=== PATIENT | male | born 1975 | race Caucasian/White ===

== ENCOUNTER → 2022-09-20 14:01 | Outpatient (REF) | payer OTHER, SELFPAY ==
--- NOTE | 2022-09-20 14:15 | ECG_ITS ---
Test Reason : QTC CHECK Blood Pressure : / mmHG Vent. Rate : 051 BPM Atrial Rate : 051 BPM P-R Int : 176 ms QRS Dur : 098 ms QT Int : 452 ms P-R-T Axes : 075 074 068 degrees QTc Int : 416 ms Sinus bradycardia Otherwise normal ECG When compared with ECG of 14-JUN-2019 21:24, No significant change was found Referred By: Laurent Zelaya Electronically Signed By:NASRIN TAPIA
[2022-09-20 14:51] LABS: MANUAL DIFF FLAG NO
[2022-09-20 15:17] LABS: Basophils Percent Auto 0.5 % (0-2); Eosinophils Absolute Auto 0.1 X10*3/uL (0.0-0.4); Eosinophils Percent Auto 1.5 % (0-4); Hematocrit 43.6 % (42.0-52.0); Hemoglobin 13.7 g/dl (14.0-18.0); Imm Gran Abs Auto 0.04 X10*3/uL (0.00-0.03); Imm Gran Pct Auto 0.5 % (0.0-0.4); Lymphocytes Absolute Auto 2.5 X10*3/uL (1.2-4.9); Lymphocytes Percent Auto 32.1 % (20-40); Mean Corpuscular HGB Conc 31.4 g/dl (31.0-36.0); Mean Corpuscular Hemoglobin 25.4 pg (27.0-33.0); Mean Corpuscular Volume 80.9 fL (80.0-98.0); Mean Platelet Volume 9.1 fL (9.4-12.4); Monocytes Absolute Auto 0.8 X10*3/uL (0.1-1.2); Monocytes Percent Auto 9.7 % (2-11); Neutrophils Absolute Auto 4.3 x10*3/uL (2.0-8.3); Neutrophils Percent Auto 55.7 % (45-73); Platelet Count 262 X10*3/uL (160-400); Red Blood Count 5.39 X10*6/uL (4.60-5.80); Red Cell Distribution Width 15.1 % (11.0-16.0); White Blood Count 7.8 X10*3/uL (4.8-10.8)
[2022-09-20 15:34] LABS: Estimated Average Glucose 100 mg/dL; Hemoglobin A1c % 5.1 %
[2022-09-20 16:21] LABS: Alanine Aminotransferase 20 U/L (0-40); Alkaline Phosphatase 70 U/L (39-117); Anion Gap 17 (12-20); Aspartate Amino Transferase 42 U/L (5-37); Bilirubin Total 0.6 mg/dL (0.0-1.0); Blood Urea Nitrogen 13 mg/dL (9-16); C Reactive Protein 1.99 mg/dL (< or = 0.50); Calcium 9.7 mg/dL (8.4-10.2); Carbon Dioxide 29 mmol/L (22-29); Chloride 103 mmol/L (96-108); Cholesterol 180 mg/dL; Estimated Glomerular Filt Rate > 60; Glucose Random 79 mg/dL (60-115); HDL Cholesterol 46 mg/dL; LDL Cholesterol Calculated 112 mg/dl; Potassium 5.6 mmol/L (3.3-5.1); Sodium 143 mmol/L (135-145); Total Protein 7.6 g/dL (6.5-8.0); Triglycerides 113 mg/dL
[2022-09-20 16:51] LABS: Thyroid Stimulating Hormone 0.64 uIU/mL (0.32-4.0)
[2022-09-21 05:39] LABS: Syphilis Screen Nonreactive (Nonreactive)
[2022-09-21 23:19] LABS: Prolactin 5.2 ng/mL (2.0-18.0)
== END ==
LOC: HO.CARD 14:01
PROVIDERS: Visit Provider Psychiatry & Neurology Child & Adolescent Psychiatry
DX: Z13.89 Encounter for screening for other disorder (principal); F10.21 Alcohol dependence, in remission; F11.20 Opioid dependence, uncomplicated; F14.20 Cocaine dependence, uncomplicated
CPT/HCPCS: 36415; 80053; 80061; 83036; 84146; 84443; 85025; 86140; 86780; 93005

== ENCOUNTER → 2025-01-20 12:01 | Day surgery (SDC) | payer OTHER, SELFPAY ==
[2025-01-18 09:54] VITALS: BMI 21.6
--- OUTSIDE RECORDS SUMMARY | 2025-01-18 09:55 | XMS_ITS ---
Author Organization [facility] Address [address] [place] [id number] Care Team Providers Care Distribution Operation Supervisor Name Role Phone KENNY FERNANDEZ Primary Care Provider Jarrett Lu Jr Encounters Encounter Location Date Provider Diagnosis [facility] [address] [place] [id number] 01/18/2025 Jarrett Rosado Jr Plan Of Treatment No Information Progress Notes * TERRI TOMLIN JRDOB:1975 (49 yo M)Acc No.[id number]:01/18/2025 Progress Notes Patient: TERRI LOPEZ JR Provider: Ramón Rosado MD :1975 A ge:49 Y S ex:Male Date:01/18/2025 Address:[address] [place], [place] [id number] Pcp:KENNY FERNANDEZ Subjective: * Chief Complaints: * * Medical History: Objective: * Vitals: Assessment: Plan: * Treatment: * * The named appointment provid er may or may not be the originator of this progress note, and it is not deemed complete until electronically signed by the appointment provider. Sign off status: Pending * Provider: Ramón Rosado MD Date: 01/18/2025 Generated for Monica sanchez/Kellen/Lettyitting on: 01/20/2025 01:08 PM EDT
[2025-01-20 12:26] VITALS: BMI 22.0
[2025-01-20 12:36] VITALS: PULSE 62; RESP 20; TEMP 30.6; O2SAT 98
[2025-01-20 12:43] LABS: Cannabinoid Screen Urine POSITIVE (Not Detect)
--- NOTE | 2025-01-20 12:52 | PC.NURSE ---
Anesthesia contacted re: patient presentation. Drinking fluids upon arrival, speech slurred. Sleeps when undisturbed Urine tox screen positive ( see report). Dr Rosado will be notified.
--- OUTSIDE RECORDS SUMMARY | 2025-01-20 13:06 | XMS_ITS | Continuity of Care Document ---
Author Name [facility] Organization [facility] Care Team Providers Care Casing In Line Setter Name Role Phone [facility] Unavailable Unavailable Problems Combined list of problems from Department of Defense and Veterans Affairs facilities. It does not include entries that were removed or entered in error. Problem Status Onset Date Problem Type Date of Resolution Comments Source Chronic Post-Traumatic Stress Disorder (SCT 261656228) Active Condition Mar 08, 2022 Entered By: AYLEEN BEASLEY Comment: la [facility] Cocaine user Active Condition [facility] Depression (SCT 85342639) Active Condition Mar 08, 2022 Entered By: AYLEEN BEASLEY Comment: moderate [facility] Gonorrhea Active Condition Jan 13 Entered By: NOHEMI LLOYD Comment: - treeated [facility] H/O: surgery Active Condition Oct 11, 2019 Entered By: NOHEMI LLOYD Comment: 06/2019 s/p repair of left tib/fib fracture [facility] Hepatitis C Active Condition Sep 10, 2022 Entered By: NOHEMI LLOYD Comment: [facility] 2022 Entered By: NOHEMI LLOYD Comment: started Mavyret on 06/28/22 [facility] Hepatitis C Active Condition Sep 28, 2021 Entered By: NOHEMI LLOYD Comment: for levels and U/S [facility] Housing adequate ([place] 497955699) Active Condition [facility] Hyperlipidemia (SCT 16125050) Active Condition [facility] INSOMNIA Active Condition [facility] Low Back Pain Active Condition [place] NICOTINE DEPENDENCY Active Condition [facility] Nondependent Cannabis Abuse ([facility] [id number]) Active Condition [facility] Opioid abuse Active Condition May 11, 2022 Entered By: AYLEEN BEASLEY Comment: On methadone 20 mg/day [facility] Picking own skin Active Condition [place] Polysubstance dependence Active Condition [facility] speech impediment Active Condition [facility] Diagnosis: ICD-10-CM K08.109 Complete loss of teeth, unspecified cause, unspecified class Active Diagnosis [facility] Diagnosis: ICD-10-CM F43.12 Post-traumatic stress disorder, chronic Active Diagnosis [place] Diagnosis: ICD-10-CM R63.4 Abnormal weight loss Active Diagnosis [place] Diagnosis: ICD-10-CM D64.9 Anemia, unspecified Active Diagnosis [facility] Diagnosis: ICD-10-CM F19.99 Oth psychoactive substance use, unsp w unsp disorder Active Diagnosis [facility] Diagnosis: ICD-10-CM K13.0 Diseases of lips Active Diagnosis [facility] Medications Combined list of outpatient medications from Department of Defense and [facility] Affairs facilities.Medications provided include 1) outpatient medications from the last 15 months, and 2) patient-reported medications. Medication Details Route Status Patient Instructions Prescription Expires Prescription Number Last Dispense Date Ordering Provider Order Date Order Qty Source DOXYCYCLINE HYCLATE 100MG TAB TAKE ONE TABLET BY MOUTH TWICE DAILY FOR SKIN INFECTIO N ORAL 10/24/2024 [id number] Muriel SAWYER 2024 20 [place] ENSURE PLUS LIQUID CHOCOLATE DRINK 1 CAN BY MOUTH ONCE DAILY FOR NUTRITIO NAL SUPPLEME NTATION ORAL ACTIVE 07/06/2025 [id number] ANTONINA LLOYD 2023 24 [facility] FERROUS GLUCONATE 324MG TAB TAKE ONE TABLET BY MOUTH EVERY OTHER DAY TO SUPPLEME NT IRON ORAL ACTIVE 10/29/2025 [id number] Beckie CASTREJON 2024 45 [facility] IBUPROFEN 600MG TAB TAKE ONE TABLET BY MOUTH THREE TIMES DAILY NEEDED FOR PAIN TAKE WITH FOOD ORAL 10/24/2024 [id number] Muriel SAWYER 2024 30 [facility] IELD METHADONE TAB TAKE BY MOUTH ORAL ACTIVE MARILYNN SEARS 2021 [place] PREDNISONE 50MG TAB TAKE ONE TABLET BY MOUTH ONCE DAILY ACUTE SWELLING ORAL 10/24/2024 [id number] Muriel SAWYER 2024 3 [facility] IELD Immunizations Combined list of available immunizations from the Department of Defense and Veterans Affairs facilities. Immunization Series Date Given Administered By Site Reaction Lot Number CVX Code Drug Liquor Bridge Operator Status Comments Source HEP B, ADULT 2 2021 DENITAAND LEONEL LEFT DELTO ID [id number] 43 complet ed [facility] [place] [facility] [place], [facility] HEP B, ADULT 1 2021 43 complet ed [facility] IELD TDAP 2021 115 complet ed [facility] IELD COVID-19 (IRMA), VECTOR-NR, [id number], PF, 0.5 ML 1 2020 212 complet ed [facility] [place] [facility] COVID-19 (MODERNA), MRNA, LNP-S, PF, 100 MCG/0.5ML DOSE OR 50 MCG/0.25ML DOSE 3 2020 207 complet ed [facility] DTAP, UNSPECIFIED FORMULATION 2010 107 complet ed Site: Left Deltoid [facility] PNEUMOCOCCAL, UNSPECIFIED FORMULATION 2010 109 complet ed [facility] Results Combined list of recent chemistry, hematology and other laboratory results from Department of Defense and Veterans Affairs, ranging from 15 months to all on record, depending upon the facility. Order Name Results Value Reference Range Date Interpretation Specimen Comments Source FERRITIN FERRITIN [MASS/VOLUM E] IN SERUM OR PLASMA BY IMMUNOASSAY 63.2 ng/mL 21.8 - 274.7 11/30 Specimen Type: SERUM No comment entered. Ordering Provider: KHURRAM CASTREJON Report Released Date/Time: Oct 28, 2024 01:31 PM Reporting Lab: [facility] [facility] [address] [facility] [address] Performing Lab: [facility] [address] [facility] [address] [facility] [facility] IRON & TIBC PANEL IRON BINDING CAPACITY [MASS/VOLUM E] IN SERUM OR PLASMA 426 ug/dL 204 - 475 11/30 Specimen Type: SERUM No comment entered. Ordering Provider: KHURRAM CASTREJON Report Released Date/Time: Oct 28, 2024 01:31 PM Reporting Lab: [facility] [place] [facility] [address] [facility] [address] Performing Lab: [facility] [place] [facility] [address] [facility] [address] [facility] [place] [facility] IRON & TIBC PANEL IRON [MASS/VOLUM E] IN SERUM OR PLASMA 38 ug/dL 65 - 175 11/30 L Specimen Type: SERUM No comment entered. Ordering Provider: KHURRAM CASTREJON Report Released Date/Time: Oct 28, 2024 01:31 PM Reporting Lab: [facility] [place] [facility] [address] [facility] [address] Performing Lab: [facility] [place] [facility] [address] [facility] [address] [facility] [place] [facility] IRON & TIBC PANEL IRON/IRON BINDING CAPACITY.TO JOHNNY [MASS RATIO] IN SERUM OR PLASMA 8.9 15 - 45 11/30 L Specimen Type: SERUM No comment entered. Ordering Provider: KHURRAM CASTREJON Report Released Date/Time: Oct 28, 2024 01:31 PM Reporting Lab: [facility] [place] [facility] [address] [facility] [address] Performing Lab: [facility] [place] [facility] [address] [facility] [address] [facility] [place] [facility] IRON & TIBC PANEL TRANSFERRIN [MASS/VOLUM E] IN SERUM OR PLASMA 323 mg/dL 174 - 364 11/30 Specimen Type: SERUM No comment entered. Ordering Provider: KHURRAM CASTREJON Report Released Date/Time: Oct 28, 2024 01:31 PM Reporting Lab: [facility] [place] [facility] [address] [facility] [address] Performing Lab: [facility] [place] [facility] [address] [facility] [address] [facility] LIVER FUNCTION PROTEIN [MASS/VOLUM E] IN SERUM OR PLASMA 7.9 g/dL 6.4 - 8.3 11/30 Specimen Type: SERUM No comment entered. Ordering Provider: KHURRAM CASTREJON Report Released Date/Time: Oct 28, 2024 01:31 PM Reporting Lab: [facility] [place] [facility] [address] [facility] [address] Performing Lab: [facility] [place] [facility] [address] [facility] [address] [facility] [place] [facility] LIVER FUNCTION ALBUMIN [MASS/VOLUM E] IN SERUM OR PLASMA BY BROMOCRESOL PURPLE (BCP) DYE BINDING METHOD 4.0 g/dL 3.5 - 5.2 11/30 Specimen Type: SERUM No comment entered. Ordering Provider: KHURRAM CASTREJON Report Released Date/Time: Oct 28, 2024 01:31 PM Reporting Lab: [facility] [place] [facility] [address] [facility] [address] Performing Lab: [facility] [place] [facility] [address] [facility] [address] [facility] [facility] LIVER FUNCTION ALKALINE PHOSPHATASE [ENZYMATIC ACTIVITY/VO LUME] IN SERUM OR PLASMA 75 U/L 40 - 150 11/30 Specimen Type: SERUM No comment entered. Ordering Provider: KHURRAM CASTREJON Report Released Date/Time: Oct 28, 2024 01:31 PM Reporting Lab: [facility] [place] [facility] [address] [facility] [address] Performing Lab: [facility] [place] [facility] [address] [facility] [address] [facility] [place] [facility] LIVER FUNCTION ASPARTATE AMINOTRANSF ERASE [ENZYMATIC ACTIVITY/VO LUME] IN SERUM OR PLASMA BY WITH P-5'-P 44 U/L 5 - 34 11/30 H Specimen Type: SERUM No comment entered. Ordering Provider: KHURRAM CASTREJON Report Released Date/Time: Oct 28, 2024 01:31 PM Reporting Lab: [facility] [place] [facility] [address] [facility] [address] Performing Lab: [facility] [place] [facility] [address] [facility] [address] [facility] [place] [facility] LIVER FUNCTION ALANINE AMINOTRANSF ERASE [ENZYMATIC ACTIVITY/VO LUME] IN SERUM OR PLASMA BY WITH P-5'-P 27 U/L 0 - 55 11/30 Specimen Type: SERUM No comment entered. Ordering Provider: KHURRAM CASTREJON Report Released Date/Time: Oct 28, 2024 01:31 PM Reporting Lab: [facility] [place] [address] [address] Performing Lab: [facility] [place] [facility] [address] [facility] [address] [facility] [place] [facility] LIVER FUNCTION BILIRUBIN.T OTAL [MASS/VOLUM E] IN SERUM OR PLASMA 0.6 mg/dL 0.2 - 1.2 11/30 Specimen Type: SERUM No comment entered. Ordering Provider: KHURRAM CASTREJON Report Released Date/Time: Oct 28, 2024 01:31 PM Reporting Lab: [facility] [place] [address] [address] Performing Lab[facility] [place] [facility] [address] [facility] [address] [facility] [place] [facility] MAGNESIUM MAGNESIUM [MASS/VOLUM E] IN SERUM OR PLASMA 2.4 mg/dL 1.6 - 2.6 11/30 Specimen Type: SERUM No comment entered. Ordering Provider: KHURRAM CASTREJON Report Released Date/Time: Oct 28, 2024 01:31 PM Reporting Lab: [facility] [place] [address] [address] Performing Lab: [facility] [place] [address] [address] [facility] [place] [facility] BASIC METABOLIC PANEL (fasting) UREA NITROGEN [MASS/VOLUM E] IN SERUM OR PLASMA 11 mg/dL 9 - 21 11/30 Specimen Type: SERUM No comment entered. Ordering Provider: KHURRAM CASTREJON Report Released Date/Time: Oct 28, 2024 01:31 PM Reporting Lab: [facility] [place] [address] Performing Lab: [place] [facility] [place] [address] [facility] [place] [facility] BASIC METABOLIC PANEL (fasting) GLUCOSE [MASS/VOLUM E] IN SERUM OR PLASMA 102 mg/dL 65 - 100 11/30 H Specimen Type: SERUM No comment entered. Ordering Provider: KHURRAM CASTREJON Report Released Date/Time: Oct 28, 2024 01:31 PM Reporting Lab: [facility] [place] [address] Performing Lab: [facility] [address] [facility] BASIC METABOLIC PANEL (fasting) SODIUM [MOLES/VOLU ME] IN SERUM OR PLASMA 141 mmol/L 136 - 145 11/30 Specimen Type: SERUM No comment entered. Ordering Provider: KHURRAM CASTREJON Report Released Date/Time: Oct 28, 2024 01:31 PM Reporting Lab: [facility] [place] [address] [address] Performing Lab: [facility] [place] [address] [address] [facility] BASIC METABOLIC PANEL (fasting) POTASSIUM [MOLES/VOLU ME] IN SERUM OR PLASMA 4.7 mmol/L 3.5 - 5.1 11/30 Specimen Type: SERUM No comment entered. Ordering Provider: KHURRAM CASTREJON Report Released Date/Time: Oct 28, 2024 01:31 PM Reporting Lab: [facility] [place] [address] Performing Lab: [facility] [place] [facility] [address] [facility] [address] [facility] BASIC METABOLIC PANEL (fasting) CHLORIDE [MOLES/VOLU ME] IN SERUM OR PLASMA 103 mmol/L 98 - 107 11/30 Specimen Type: SERUM No comment entered. Ordering Provider: KHURRAM CASTREJON Report Released Date/Time: Oct 28, 2024 01:31 PM Reporting Lab: [facility] [place] [facility] [address] [facility] [address] Performing Lab: [place] [facility] [address] [facility] [address] [facility]ERRH[facility]N [facility] BASIC METABOLIC PANEL (fasting) CARBON DIOXIDE, TOTAL [MOLES/VOLU ME] IN SERUM OR PLASMA 27 meq/L 22 - 29 11/30 Specimen Type: SERUM No comment entered. Ordering Provider: KHURRAM CASTREJON Report Released Date/Time: Oct 28, 2024 01:31 PM Reporting Lab: [facility] [place] [place] [facility] [address] [facility] [address] Performing Lab: [facility] [address] [facility] [address] [facility] TRN [facility] BASIC METABOLIC PANEL (fasting) CALCIUM [MASS/VOLUM E] IN SERUM OR PLASMA 9.0 mg/dL 8.4 - 10.2 11/30 Specimen Type: SERUM No comment entered. Ordering Provider: KHURRAM CASTREJON Report Released Date/Time: Oct 28, 2024 01:31 PM Reporting Lab: [facility] [place] [place] [facility] [address] [facility] [address] Performing Lab: [facility] [address] [facility] [address] [facility] CENTERRSEARCY HOSPITALTRN [facility]ITALUSE [facility] BASIC METABOLIC PANEL (fasting) CREATININE [MASS/VOLUM E] IN SERUM OR PLASMA 0.73 mg/dL 0.72 - 1.25 11/30 Specimen Type: SERUM No comment entered. Ordering Provider: KHURRAM CASTREJON Report Released Date/Time: Oct 28, 2024 01:31 PM Reporting Lab: [facility] [place] [facility] [address] [facility] [address] Performing Lab: [facility] [place] [facility] [address] [facility] [address] [facility] [place] [facility] BASIC METABOLIC PANEL (fasting) GLOMERULAR FILTRATION RATE/1.73 SQ M.PREDICTED [VOLUME RATE/AREA] IN SERUM, PLASMA OR BLOOD BY CREATININE- BASED FORMULA (CKD-EPI 2020) >90mL/ min 60 11/30 Specimen Type: SERUM No comment entered. Ordering Provider: KHURRAM CASTREJON Report Released Date/Time: Oct 28, 2024 01:31 PM Reporting Lab: [facility] [place] [address] [address] Performing Lab: [facility] [place] [place] [address] [address] [facility] [place] [facility] CBC AND DIFF (AUTO) LEUKOCYTES [#/VOLUME] IN BLOOD BY AUTOMATED COUNT 6.97 10*3/u L 4.50 - 11.00 11/30 Specimen Type: BLOOD Comment: sdif Smear reviewed, auto CBC w/Diff accepted. Ordering Provider: KHURRAM CASTREJON Report Released Date/Time: Oct 28, 2024 01:31 PM Reporting Lab: [facility] [place] [address] [address] Performing Lab: [facility] [place] [address] [address] [facility] [place] [facility] CBC AND DIFF (AUTO) ERYTHROCYTE S [#/VOLUME] IN BLOOD BY AUTOMATED COUNT 5.51 10*6/u L 4.23 - 5.66 11/30 Specimen Type: BLOOD Comment: sdif Smear reviewed, auto CBC w/Diff accepted. Ordering Provider: KHURRAM CASTREJON Report Released Date/Time: Oct 28, 2024 01:31 PM Reporting Lab: [facility] [place] [facility] [address] [facility] [address] Performing Lab: [facility] [place] [address] [address] [facility] [place] [facility] CBC AND DIFF (AUTO) HEMOGLOBIN [MASS/VOLUM E] IN BLOOD 13.5 g/dL 12.8 - 17 11/30 Specimen Type: BLOOD Comment: sdif Smear reviewed, auto CBC w/Diff accepted. Ordering Provider: KHURRAM CASTREJON Report Released Date/Time: Oct 28, 2024 01:31 PM Reporting Lab: [facility]ERRSE[facility]Y HOSPITALTRN [facility]ETS [facility] [address] [facility] [address] Performing Lab: [facility] W[facility]N [facility]ITALCH[facility]ETS [facility] [address] [facility] [address] [facility]ENTERRSEARCY HOSPITALTRN [place] [facility] CBC AND DIFF (AUTO) HEMATOCRIT [VOLUME FRACTION] OF BLOOD BY AUTOMATED COUNT 43.4 39.2 - 50.4 11/30 Specimen Type: BLOOD Comment: sdif Smear reviewed, auto CBC w/Diff accepted. Ordering Provider: KHURRAM CASTREJON Report Released Date/Time: Oct 28, 2024 01:31 PM Reporting Lab: [facility]ENTERRSEARCY HOSPITALTRN [facility]USE[address] [address] Performing Lab: [facility]RL TRN [facility]PITALCHUSETS [facility] [address] [facility] [address] [facility]ERR[facility]N [facility]ITALUSE [facility] CBC AND DIFF (AUTO) MCV [ENTITIC VOLUME] BY AUTOMATED COUNT 78.8 fL 82 - 99 11/30 L Specimen Type: BLOOD Comment: sdif Smear reviewed, auto CBC w/Diff accepted. Ordering Provider: KHURRAM CASTREJON Report Released Date/Time: Oct 28, 2024 01:31 PM Reporting Lab: [facility]ENTERRSEARCY HOSPITALTRN [facility]ITALUSETS [address] [address] Performing Lab: [facility]RL TRN [facility]ITALCHUSETS [address] [address] [facility]ERRHUNTSVILLE [facility] SYSTEMN [facility] CBC AND DIFF (AUTO) MCHC [MASS/VOLUM E] BY AUTOMATED COUNT 31.1 g/dL 30.8 - 35.1 11/30 Specimen Type: BLOOD Comment: sdif Smear reviewed, auto CBC w/Diff accepted. Ordering Provider: KHURRAM CASTREJON Report Released Date/Time: Oct 28, 2024 01:31 PM Reporting Lab: [facility]ENTERRSEARCY HOSPITALTRN [facility]ITALUSETS [address] [address] Performing Lab: [facility] W[facility]N [facility]PITALCHUSETS [facility] [address] [facility] [address] [facility] W[facility]OSPITALCHUSE [facility] CBC AND DIFF (AUTO) PLATELETS [#/VOLUME] IN BLOOD BY AUTOMATED COUNT 261 10*3/u L 140 - 360 11/30 Specimen Type: BLOOD Comment: sdif Smear reviewed, auto CBC w/Diff accepted. Ordering Provider: KHURRAM CASTREJON Report Released Date/Time: Oct 28, 2024 01:31 PM Reporting Lab: [facility] TRN [facility]ITALUSETS [facility] [address] [facility] [address] Performing Lab: [facility]ENTERRSEARCY HOSPITALTRN [facility] [address] [facility]RL TRN [facility]ITALUSE [facility] CBC AND DIFF (AUTO) PLATELET MEAN VOLUME [ENTITIC VOLUME] IN BLOOD BY AUTOMATED COUNT 8.7 fL 9.2 - 12.4 11/30 L Specimen Type: BLOOD Comment: sdif Smear reviewed, auto CBC w/Diff accepted. Ordering Provider: KHURRAM CASTREJON Report Released Date/Time: Oct 28, 2024 01:31 PM Reporting Lab: [facility]ENTERRSEARC[facility] HOSPITALTRN [facility] [address] Performing Lab: [facility] TRN [facility]PITALUSETS [facility] [address] [facility] [address] [facility]ERRHUNTSV[facility] SYSTEMN [facility]ITALUSE [facility] CBC AND DIFF (AUTO) ERYTHROCYTE DISTRIBUTIO N WIDTH [RATIO] BY AUTOMATED COUNT 15.7 12.0 - 16.0 11/30 Specimen Type: BLOOD Comment: sdif Smear reviewed, auto CBC w/Diff accepted. Ordering Provider: KHURRAM CASTREJON Report Released Date/Time: Oct 28, 2024 01:31 PM Reporting Lab: [facility] TRN [facility]ITALUSETS [address] [address] Performing Lab: [facility] W[facility]N [facility]ITAL[facility]ETS [address] [address] [facility]ERRHUNTSVILLE [facility]OSP[facility] SYSTEMN [facility]ITALUSE [facility] CBC AND DIFF (AUTO) MONOCYTES [#/VOLUME] IN BLOOD BY AUTOMATED COUNT 0.72 10*3/u L 0.30 - 1.10 05/19 /2025 Specimen Type: BLOOD Comment: sdif Smear reviewed, auto CBC w/Diff accepted. Ordering Provider: KHURRAM CASTREJON Report Released Date/Time: Oct 28, 2024 01:31 PM Reporting Lab: [facility] [place] [facility] [address] [facility] [address] Performing Lab: [facility] [place] [facility] [address] [facility] [phone] [facility] [place] [facility] CBC AND DIFF (AUTO) MCH [ENTITIC MASS] BY AUTOMATED COUNT 24.5 pg 26.2 - 32.6 11/30 L Specimen Type: BLOOD Comment: sdif Smear reviewed, auto CBC w/Diff accepted. Ordering Provider: KHURRAM CASTREJON Report Released Date/Time: Oct 28, 2024 01:31 PM Reporting Lab: [facility] [place] [address] [address] Performing Lab: [facility] [place] [address] [address] [facility] [place] [facility] CBC AND DIFF (AUTO) NEUTROPHILS /100 LEUKOCYTES IN BLOOD BY AUTOMATED COUNT 47.8 43.7 - 75.8 11/30 Specimen Type: BLOOD Comment: sdif Smear reviewed, auto CBC w/Diff accepted. Ordering Provider: KHURRAM CASTREJON Report Released Date/Time: Oct 28, 2024 01:31 PM Reporting Lab: [facility] [place] [address] [address] Performing Lab: [facility] [place] [address] [address] [facility] [place] [facility] CBC AND DIFF (AUTO) LYMPHOCYTES /100 LEUKOCYTES IN BLOOD BY AUTOMATED COUNT 37.4 14.0 - 42.3 11/30 Specimen Type: BLOOD Comment: sdif Smear reviewed, auto CBC w/Diff accepted. Ordering Provider: KHURRAM CASTREJON Report Released Date/Time: Oct 28, 2024 01:31 PM Reporting Lab: [facility] [place] [address] [address] Performing Lab: [facility] [place] [facility] [address] [facility] [address] [facility]ITAL[facility]ITAL[facility] CBC AND DIFF (AUTO) MONOCYTES/1 00 LEUKOCYTES IN BLOOD BY AUTOMATED COUNT 10.3 5.1 - 13.7 11/30 Specimen Type: BLOOD Comment: sdif Smear reviewed, auto CBC w/Diff accepted. Ordering Provider: KHURRAM CASTREJON Report Released Date/Time: Oct 28, 2024 01:31 PM Reporting Lab: [facility] [place] [facility] [address] [facility] [address] Performing Lab: [facility]ITAL[facility] [address] [facility] [address] [facility]OSPITALTRN [facility]ITALCHUSE [facility] CBC AND DIFF (AUTO) EOSINOPHILS /100 LEUKOCYTES IN BLOOD BY AUTOMATED COUNT 4.0 0.4 - 6.8 11/30 Specimen Type: BLOOD Comment: sdif Smear reviewed, auto CBC w/Diff accepted. Ordering Provider: KHURRAM CASTREJON Report Released Date/Time: Oct 28, 2024 01:31 PM Reporting Lab: [facility]PITALTRN [facility]ITAL[facility] [address] [facility] [address] Performing Lab: [facility]ITAL[facility] [address] [address] [facility]ERRHUN[facility] SYSTEMN [facility]ITAL[facility] CBC AND DIFF (AUTO) BASOPHILS/1 00 LEUKOCYTES IN BLOOD BY AUTOMATED COUNT 0.4 0.1 - 2.0 11/30 Specimen Type: BLOOD Comment: sdif Smear reviewed, auto CBC w/Diff accepted. Ordering Provider: KHURRAM CASTREJON Report Released Date/Time: Oct 28, 2024 01:31 PM Reporting Lab: [facility] [address] [address] Performing Lab: [facility] [address] [address] [facility]ERRHUNTSVILLE [facility] SYSTEMN [facility]ITALUSE [facility] CBC AND DIFF (AUTO) NEUTROPHILS [#/VOLUME] IN BLOOD BY AUTOMATED COUNT 3.32 10*3/u L 2.20 - 7.60 11/30 Specimen Type: BLOOD Comment: sdif Smear reviewed, auto CBC w/Diff accepted. Ordering Provider: KHURRAM CASTREJON Report Released Date/Time: Oct 28, 2024 01:31 PM Reporting Lab: [facility] [place] [facility] [address] [facility] [address] Performing Lab: [facility] [place] [facility] [address] [facility] [address] [facility] [place] [facility] CBC AND DIFF (AUTO) LYMPHOCYTES [#/VOLUME] IN BLOOD BY AUTOMATED COUNT 2.61 10*3/u L 1.00 - 3.20 11/30 Specimen Type: BLOOD Comment: sdif Smear reviewed, auto CBC w/Diff accepted. Ordering Provider: KHURRAM CASTREJON Report Released Date/Time: Oct 28, 2024 01:31 PM Reporting Lab: [facility] [place] [address] [address] Performing Lab: [facility] [address] [address] [facility] [place] [facility] CBC AND DIFF (AUTO) EOSINOPHILS [#/VOLUME] IN BLOOD BY AUTOMATED COUNT 0.28 10*3/u L 0.03 - 0.44 11/30 Specimen Type: BLOOD Comment: sdif Smear reviewed, auto CBC w/Diff accepted. Ordering Provider: KHURRAM CASTREJON Report Released Date/Time: Oct 28, 2024 01:31 PM Reporting Lab: [facility] [place] [address] [address] Performing Lab: [facility] [place] [address] [address] [facility] [place] [facility] CBC AND DIFF (AUTO) BASOPHILS [#/VOLUME] IN BLOOD BY AUTOMATED COUNT 0.03 10*3/u L 0.01 - 0.13 11/30 Specimen Type: BLOOD Comment: sdif Smear reviewed, auto CBC w/Diff accepted. Ordering Provider: KHURRAM CASTREJON Report Released Date/Time: Oct 28, 2024 01:31 PM Reporting Lab: [facility] [place] [address] [address] Performing Lab: [facility] [place] [address] [address] [facility]OSPITALTRN [facility]ITALUSE [facility] CBC AND DIFF (AUTO) IMMATURE GRANULOCYTE S/100 LEUKOCYTES IN BLOOD BY AUTOMATED COUNT 0.1 0.0 - 0.7 11/30 Specimen Type: BLOOD Comment: sdif Smear reviewed, auto CBC w/Diff accepted. Ordering Provider: KHURRAM CASTREJON Report Released Date/Time: Oct 28, 2024 01:31 PM Reporting Lab: [facility]OSPITALTRN [facility]ITALUSE[address] [address] Performing Lab: [facility] HOSPITALTRN [address] [address] [facility] CBC AND DIFF (AUTO) IMMATURE GRANULOCYTE S [#/VOLUME] IN BLOOD BY AUTOMATED COUNT 0.01 10*3/u L 0.00 - 0.06 11/30 Specimen Type: BLOOD Comment: sdif Smear reviewed, auto CBC w/Diff accepted. Ordering Provider: KHURRAM CASTREJON Report Released Date/Time: Oct 28, 2024 01:31 PM Reporting Lab: [facility]ERR[facility]UN[facility] SYSTEMN [address] [address] Performing Lab: [facility] [address] [address] [facility] CBC AND DIFF (AUTO) NUCLEATED ERYTHROCYTE S/100 LEUKOCYTES [RATIO] IN BLOOD BY AUTOMATED COUNT 0.0 0.0 - 0.0 11/30 Specimen Type: BLOOD Comment: sdif Smear reviewed, auto CBC w/Diff accepted. Ordering Provider: KHURRAM CASTREJON Report Released Date/Time: Oct 28, 2024 01:31 PM Reporting Lab: [facility]ERR[facility]UN[facility] SYSTEMN [address] [address] Performing Lab: [facility]ITALTRN [facility]ITALUSE[address] [address] [facility] CBC AND DIFF (AUTO) NUCLEATED ERYTHROCYTE S [#/VOLUME] IN BLOOD BY AUTOMATED COUNT 0.00 10*3/u L 0.00 - 0.00 11/30 Specimen Type: BLOOD Comment: sdif Smear reviewed, auto CBC w/Diff accepted. Ordering Provider: KHURRAM CASTREJON Report Released Date/Time: Oct 28, 2024 01:31 PM Reporting Lab: [facility] [place] [facility] [address] [facility] [address] Performing Lab: [facility] [place] [facility] [address] [facility] [address] [place] [facility] [place] [facility] FOLATE (WROX) FOLATE [MASS/VOLUM E] IN SERUM OR PLASMA 8.3 ng/mL 5.2 10/07 Specimen Type: SERUM No comment entered. Ordering Provider: ДМИТРИЙ DUNCAN Report Released Date/Time: Sep 24, 2024 01:47 PM Reporting Lab: [facility] [place] [facility] [address] [facility] [address] Performing Lab: [facility]ENTERRSEARCY HOSPITALTRN [facility]ITALUSE[facility] [address] [facility] [address] [place] VITAMIN B12 COBALAMIN (VITAMIN B12) [MASS/VOLUM E] IN SERUM OR PLASMA 405 pg/mL 200 - 900 10/07 Specimen Type: SERUM No comment entered. Ordering Provider: ДМИТРИЙ DUNCAN Report Released Date/Time: Sep 24, 2024 01:47 PM Reporting Lab: [facility] TRN [facility]PITALUSETS [facility] [address] [facility] [address] Performing Lab: [facility]ENTERRL TRN [facility]ITALUSEST[facility] [address] [facility] [address] [place] IRON & TIBC PANEL IRON BINDING CAPACITY [MASS/VOLUM E] IN SERUM OR PLASMA 437 ug/dL 204 - 475 10/07 Specimen Type: SERUM No comment entered. Ordering Provider: ДМИТРИЙ DUNCAN Report Released Date/Time: Sep 24, 2024 01:47 PM Reporting Lab: [facility] [place] [facility] [address] [facility] [address] Performing Lab: [facility]RL W[facility]N [facility]ITALUSEST[facility] [address] [facility] [address] [place] IRON & TIBC PANEL IRON [MASS/VOLUM E] IN SERUM OR PLASMA 83 ug/dL 40 - 160 10/07 Specimen Type: SERUM No comment entered. Ordering Provider: ДМИТРИЙ DUNCAN Report Released Date/Time: Sep 24, 2024 01:47 PM Reporting Lab: [facility] [address] [address] Performing Lab: [facility] [address] [address] [place] IRON & TIBC PANEL IRON/IRON BINDING CAPACITY.TO JOHNNY [MASS RATIO] IN SERUM OR PLASMA 19.0 20.0 - 50.0 10/07 L Specimen Type: SERUM No comment entered. Ordering Provider: ДМИТРИЙ DUNCAN Report Released Date/Time: Sep 24, 2024 01:47 PM Reporting Lab: [facility] [address] [address] Performing Lab: [address] [address] [place] IRON & TIBC PANEL TRANSFERRIN [MASS/VOLUM E] IN SERUM OR PLASMA 331 mg/dL 200 - 360 10/07 Specimen Type: SERUM No comment entered. Ordering Provider: ДМИТРИЙ DUNCAN Report Released Date/Time: Sep 24, 2024 01:47 PM Reporting Lab: [address] [address] Performing Lab: [address] [address] [place] FERRITIN FERRITIN [MASS/VOLUM E] IN SERUM OR PLASMA BY IMMUNOASSAY 61 ng/mL 20 - 300 10/07 Specimen Type: SERUM No comment entered. Ordering Provider: ДМИТРИЙ DUNCAN Report Released Date/Time: Sep 24, 2024 01:47 PM Reporting Lab: [address] [address] Performing Lab: [address] [address] [place] Vital Signs Combined list of inpatient and outpatient Vital Signs from Department of Defense and Veterans Affairs, ranging from 12 months to all on record, depending upon the facility. Vital Sign Value Date Comments Source WEIGHT 154.1 01/04/2025 12:56:56 [facility] [place] [facility] BMI 21 kg/m2 01/04/2025 12:56:56 [facility] [place] [facility] SYSTOLIC BLOOD PRESSURE 130 09/25/19 13:16:11 [place] DIASTOLIC BLOOD PRESSURE 77 025 13:16:11 [place] PULSE OXIMETRY 97 09/24/2024 13:16:11 [place] PAIN 1 09/24/2024 13:16:11 [place] TEMPERATURE 98.6 09/24/2024 13:16:11 [place] PULSE 77 09/24/2024 13:16:11 [place] RESPIRATION 16 09/24/2024 13:16:11 [place] WEIGHT 158.3 08/20/2024 10:00:00 [facility] [place] [facility] BMI 22 kg/m2 08/20/2024 10:00:00 [facility] [place] [facility] WEIGHT 144.9 07/01/2024 10:06:11 [facility] [place] [facility] BMI 20 kg/m2 07/01/2024 10:06:11 [facility] [place] [facility] SYSTOLIC BLOOD PRESSURE 126 05/20/20 24 13:19:05 [facility] [place] [facility] DIASTOLIC BLOOD PRESSURE 73 024 13:19:05 [facility] [place] [facility] PULSE OXIMETRY 96 05/20/2024 13:19:05 [facility] [place] [facility] WEIGHT 135.2 05/20/2024 13:19:05 [facility] [place] [facility] BMI 18 kg/m2 05/20/2024 13:19:05 [facility] [place] [facility] PAIN 0 05/20/2024 13:19:05 [facility] [place] [facility] HEIGHT 72 05/20/2024 13:19:05 [facility] [place] [facility] PULSE 88 05/20/2024 13:19:05 [facility] [place] [facility] RESPIRATION 20 05/20/2024 13:19:05 [facility] [place] [facility] Encounters Combined list of: 1) Encounters from Department of Veterans Affairs facilities going backup to the last 18 months, not all VA inpatient encounters are included; 2) Encounters from the Department of [facility] facilities going backup to 280 months. Location Location Details Encounter Type Encounter Number Reason For Visit Attending Provider ADM Date DC Date Status Disposition Source [facility] [place] [facility] Outpatient Encounter [id number] 10/27 [facility] [place] [place] [facility] DENTAL PANORAMIC IMAGE [id number] Diagnos is: ICD-10- CM K08.109 Complet e loss of teeth, unspeci fied cause, unspeci fied class CHASIDY GUAN 10/28 [facility] [place] [place] [facility] Outpatient Encounter [id number] 05/12 [facility] [place] [place] [facility] Outpatient Encounter [id number] [facility] [place] [place] En[facility] [id number] 05/20 [facility] [place] [facility] [place] [facility] Outpatient Encounter [id number] 05/20 [facility] [place] [facility] EST MOD 30 MIN [id number] Diagnos is: ICD-10- CM F19.99 Oth psychoa ctive substan ce use, unsp w unsp disorde r Gustavo LLOYD 05/20 [facility] [place] [id number] Diagnos is: ICD-10- CM R63.4 Abnorma l weight loss ABILIO RODRIGUEZ P 07/01 [place] [facility] Out[facility] Encounter [id number] 07/16 [facility] [place] MED NUTRITION INDIV SUBSEQ [id number] Diagnos is: ICD-10- CM R63.4 Abnorma l weight loss ABILIO RODRIGUEZ P 08/20 [place] [facility] Out[facility] Encounter [id number] 08/24 [facility] [place] [place] En[facility] [id number] 08/25 [facility] [place] [place] En[facility] [id number] 08/26 [facility] [place] OFF/OP EST NOVEMBER X REQ PHY/QHP [id number] Diagnos is: ICD-10- CM K13.0 Disease s of lips CANDIE,ER [place] [facility] Encounter [id number] 09/24 [facility] [place] En[facility] [id number] 10/09 [facility] [place] [place] En[facility] [id number] 10/14 [facility] [place] [place] Encounter [id number] 10/28 [facility] [place] [facility] OFFICE O/P EST MOD 30 MIN [id number] Diagnos is: ICD-10- CM F19.99 Oth psychoa ctive substan ce use, unsp w unsp disorde r [facility]28 [facility] [place] [facility] Out[facility] Encounter [id number] 10/28 [facility] [place] Outpatient Encounter [id number] 11/30 [place] [facility] Out[facility] Encounter [id number] 12/09 [facility] [place] [place] En[facility] [id number] 12/09 [facility] [place] [facility] OFFICE O/P EST MOD 30 MIN [id number] Diagnos is: ICD-10- CM D64.9 Anemia, unspeci fied [facility] 12/09 [facility] [place] [facility] Outpatient Encounter [id number] 12/09 [facility] [place] [place] Encounter [id number] 12/09 [facility] [place] [place] En[facility] [id number] 12/17 [facility] [place] [place] LIMIT ORAL EVAL PROBLM FOCUS [id number] Diagnos is: ICD-10- CM K08.109 Complet e loss of teeth, unspeci fied cause, unspeci fied class HOHREITER, VINCENT 12/18 [facility] [place] [facility] [place] [facility] Outpatient Encounter [id number] 12/21 [facility] [place] [facility] [place] [facility] Outpatient Encounter [id number] 12/22 [place] [facility] [place] [facility] [place] NUTRITION INDIV SUBSEQ [id number] Diagnos is: ICD-10- CM R63.4 Abnorma l weight loss ABILIO RODRIGUEZ P 01/04 [facility] [place] [facility] [place] [facility] Outpatient Encounter [id number] 01/04 [place] [facility] [place] [facility] [id number] Diagnos is: ICD-10- CM F43.12 Post-tr aumatic stress disorde r, chronic VON HARDEN G 01/11 [facility] [place] [place] [facility] [place] [facility] Outpatient Encounter [id number] 01/18 [place] [facility] [place] [place] [facility] [place] [facility] OFFICE O/P EST LOW 20 MIN [id number] Diagnos is: ICD-10- CM K08.109 Complet e loss of teeth, unspeci fied cause, unspeci fied class MARLENE CASTANEDA, CTORIA J 01/20 [place] [facility] [place] [place] [facility] Social History Combined list of available smoking, tobacco, and other social history from Department of Defense and Veterans Affairs facilities. Social History Type Response Date Comment Source Tobacco smoking status [facility] [place]-TO[place]ACCO [place] 30 MIN OF WAKEUP 05/20/2024 [place] History of tobacco use [place]-TOBACCO USER EVERY DAY 05/20/2024 [place] History of tobacco use [place]-TOBACCO NEVER USED 05/20/2023 [place] History of tobacco use [place]-TOBACCO USER EVERY DAY 09/08/2021 [place] History of tobacco use [place]-TOBACCO [place] 30 MIN OF WAKEUP 08/18/2018 [place] History of tobacco use V1-PT READY TO QUIT TOBACCO USE 07/17/2012 [facility] History of tobacco use CURRENT SMOKER 02/12/2012 [facility] History of tobacco use CURRENT SMOKER 12/26/2010 [facility] History of tobacco use CURRENT SMOKER 05/04/2008 P_t. smokes a pack a day right now!!! [place] History of tobacco use CURRENT SMOKER 12/14/2002 1ppd x 10yrs [place] This section is an empty social history section. [facility] Plan of Care List of future care activities from Department of Veterans Affairs facilities. Additional future care activities may be listed in the Assessment and Plan section. Date/Time Care Activity Care Activity Detail Facili ty 01/20/2025 AMBULATORY - NONE AMBULATORY - NONE [facility]
--- OUTSIDE RECORDS SUMMARY | 2025-01-20 13:09 | XMS_ITS | Clinical Summary ---
Author Organization [facility] Address [address] [id number] Care Team Providers Care Photographer Apprentice Name Role Phone Kaitlyn Lagunas MD Primary Care Provider Unavailabl e Social History Tobacco Use Types Packs/Day Years Used Date Smoking Tobacco: Never Assessed Sex and Gender Information Value Date Recorded Sex Assigned at Not on file Legal Sex Male 11:54 AM EDT Gender Identity Not on file Sexual Orientation Not on file Plan of Treatment Not on file Care Teams Photographer Apprentice Relationship Specialty Start Date End Date Kaitlyn Lagunas MD [address] [place] [address] PCP - General Internal Medicine 03/22/22
--- OUTSIDE RECORDS SUMMARY | 2025-01-20 13:09 | XMS_ITS | Clinical Summary ---
Author Organization [facility] ity Address [address] [place] [address] Care Team Providers Care Talent Acquisition Associate Name Role Phone Unavailable Primary Care Provider Unavailabl e Social History Tobacco Use Types Packs/Day Years Used Date Smoking Tobacco: Never Assessed Sex and Gender Information Value Date Recorded Sex Assigned at Not on file Legal Sex Male 5:15 PM EST Gender Identity Not on file Sexual Orientation Not on file Plan of Treatment Health Maintenance Due Date Last Done Comments DTaP,Tdap,and Td Vaccines (1 - Tdap) 11/11/1995 Hepatitis B Vaccines (1 of 3 - 19+ 3-dose series) 11/11/1995 COVID-19 Vaccine (2023-2 5 season) 2024 Cholesterol Screening (Lipid Panel) 10/05/2024 Colorectal Cancer Screening: Colonoscopy 10/05/2024 Depression Screening 10/05/2024 HIV Screening 10/05/2024 Hepatitis C Screening 10/05/2024 Social Influencers of Health Screening 10/05/2024 Influenza Vaccine (#1) 2025 HIB Vaccines Aged Out No longer eligi ble based on patient's age to complete this topic HPV Vaccines Aged Out No longer eligi ble based on patient's age to complete this topic Hepatitis A Vaccines Aged Out No long er eligible based on patient's age to complete this topic IPV Vaccines Aged Out No longer eligi ble based on patient's age to complete this topic MMR Vaccines Aged Out No longer eligi ble based on patient's age to complete this topic Meningococcal ACWY Vaccine Aged Out N o longer eligible based on patient's age to complete this topic Meningococcal B Vaccine Aged Out No l onger eligible based on patient's age to complete this topic Pneumococcal Vaccine: Pediat rics (0 to 5 Years) and At-Risk Patients (6 to 49 Years) Aged Out No longer eligible b ased on patient's age to complete this topic RSV Immunization Patients Un amor 20 months Aged Out No longer eligible b ased on patient's age to complete this topic Varicella Vaccines Aged Out No longer eligible based on patient's age to complete this topic
--- NOTE | 2025-01-20 13:32 | PC.NURSE ---
Dr Rosado and Dr Pérez spoke with patient and the procedure was cancelled due to the positive drug screen. Patient was told this needed to be done for his safety. We tried to escort patient via [facility] but he refused and left ambulatory..
--- NOTE | 2025-01-21 04:41 | OP_ITS ---
DATE OF SERVICE: 01/19/2025 SURGEON: Jarrett Rosado MD PREOPERATIVE DIAGNOSIS: POSTOPERATIVE DIAGNOSIS: PROCEDURE PERFORMED: ESTIMATED BLOOD LOSS: COMPLICATIONS: ANESTHESIA: ASSISTANTS: SPECIMENS: Mr. Andersen presented for his procedure today. As part of his anesthesia screening, he had a urine drug test, which was positive for opiates, methadone, and fentanyl as well as cocaine and marijuana. He was evaluated by Dr. Fu from the Anesthesia department, who recommended that his procedure be rescheduled because of his positive drug screen. I discussed this with him. He declined to do anything further at this point and I assisted him in getting dressed and leaving the hospital. I accompanied him down to the exit from the hospital and he indicated that he would arrange his own transportation. MD DEDE Conti/ALISHAL / [phone]
== END ==
PROVIDERS: Nurse Practitioner; Visit Provider Internal Medicine Gastroenterology
DX: D50.9 Iron deficiency anemia, unspecified (principal); Z53.09 Procedure and treatment not carried out because of other contraindication; R82.5 Elevated urine levels of drugs, medicaments and biological substances
CPT/HCPCS: 80307